=== PATIENT | female | born 1980 | race Caucasian/White ===

== ENCOUNTER → 2022-03-02 16:38 | Outpatient (BNVA) | payer OTHER, SELFPAY | PROVIDERS: Family Provider Nurse Practitioner Family; PCP Nurse Practitioner Family; Visit Provider Registered Nurse | DX: R51.9 Headache, unspecified (principal) | CPT/HCPCS: 80053; 85025; 85651; 86140 ==

== ENCOUNTER 2022-03-17 07:03 | Outpatient (CLI) | payer OTHER, SELFPAY ==
--- NOTE | 2022-03-17 07:15 | MR_ITS ---
WS: [id number] MRI HEAD WITH CONTRAST TECHNIQUE: Sagittal T1, T2 axial, T2 axial FLAIR, axial susceptibility weighted imaging, axial diffus ion weighted images, and coronal T2 images were obtained. Pre and post-T1 axial and post T1 coronal i mages. ADC and FSPGR images. CLINICAL INFORMATION: R51.9 - Headache, unspecified COMPARISON: None. FINDINGS: No evidence restricted diffusion to suggest acute ischemia. Ventricular system and basal cisterns are patent. Small focus of T2 signal abnormality in the RIGHT frontal white matter near the vertex. A fe w tiny foci in the periventricular white matter of doubtful clinical significance. No suspicious intr acranial signal abnormalities. Normal posterior fossa. Normal vascular flow voids at the skull base. No extra-axial fluid collections. No evidence of mass or mass effect. No hemosiderin on susceptibly weighted images. Normal optic chiasm and pituitary infundibulum. Tempor al lobes and hippocampal formations are normal in appearance. Visualized orbits and globes are normal in appearance. No abnormal gadolinium enhancement. Normal cavernous sinuses and Meckel's cave. No abnormal intracran ial enhancement. Normal dural venous sinuses. MR/MR head wo/w con [id number] IMPRESSION: 1. No evidence restricted diffusion to suggest acute ischemia. 2. A few small foci of T2 hyperintensity in the frontal subcortical and perive ntricular white matter of doubtful clinical significance. No significant parenc hymal volume loss. 3. No hemosiderin on susceptibly weighted images. 4. Normal optic chiasm and pituitary infundibulum. Normal cavernous sinuses an d Meckel's cave. 5. Paranasal sinuses and mastoid air cells well aerated. 6. Visualized orbits are normal in appearance.
[2022-03-17] MEDS: gadobenate dimeglumine 20 mL vial IV (08:10)
== END 2022-03-17 07:04 | disposition home or self-care (01) ==
LOC: RAD 07:04
PROVIDERS: Family Provider Nurse Practitioner Family; PCP Registered Nurse; Visit Provider Specialist
DX: R51.9 Headache, unspecified (principal)
CPT/HCPCS: 70553

== ENCOUNTER → 2023-06-14 08:59 | Outpatient (BNVA) | payer OTHER, SELFPAY | PROVIDERS: Family Provider Nurse Practitioner Family; PCP Registered Nurse; Referring Provider Registered Nurse; Visit Provider Nurse Practitioner Family | DX: G54.2 Cervical root disorders, not elsewhere classified | CPT/HCPCS: 73030 ==

== ENCOUNTER 2023-08-23 08:18 | Outpatient (CLI) | payer OTHER, SELFPAY ==
--- NOTE | 2023-08-23 08:25 | MM_ITS ---
WS: [id number] DIAGNOSTIC BILATERAL DIGITAL BREAST TOMOSYNTHESIS MAMMOGRAPHY WITH CAD RIGHT breast ultrasound, limited. HISTORY: RT BR LUMP COMPARISON: None available. TECHNIQUE: Bilateral craniocaudad, mediolateral oblique, and mediolateral views are submitted with to mosynthesis and SM. Spot compression RIGHT CC. Computer aided detection utilized. Breast composition: The breasts are heterogeneously dense, which may obscure small masses. Palpable m arker corresponds to the 12:00 axis of the RIGHT breast. There is very dense fibroglandular tissue. Q uestionable minimal distortion of the soft tissues. Benign calcifications within each breast. RIGHT breast ultrasound, limited. Numerous cysts in the RIGHT breast at 12:00, which correspond to the palpable abnormality and also th e increased density on the mammogram. The largest cyst measures 2.0 x 1.3 x 2.5 cm. No solid mass. IMPRESSION: MM/[place] [id number] BI-RADS: 2-Benign FOLLOW UP: 1 Year Follow-up
== END 2023-08-23 08:19 | disposition home or self-care (01) ==
PROVIDERS: Family Provider Nurse Practitioner Family; PCP Registered Nurse; Visit Provider Registered Nurse
DX: N63.15 Unspecified lump in the right breast, overlapping quadrants (principal)
CPT/HCPCS: 76642; 77062; G0279

== ENCOUNTER → 2024-03-06 09:07 | Outpatient (BNVA) | payer OTHER, SELFPAY | PROVIDERS: Family Provider Nurse Practitioner Family; PCP Registered Nurse; Visit Provider Registered Nurse | DX: F41.1 Generalized anxiety disorder (principal); F43.0 Acute stress reaction; Z13.6 Encounter for screening for cardiovascular disorders; Z00.00 Encounter for general adult medical examination without abnormal findings; Z01.419 Encounter for gynecological examination (general) (routine) without abnormal findings | CPT/HCPCS: 80053; 80061; 85025; 87070; 87205; 88175 ==

== ENCOUNTER → 2025-03-07 10:09 | Outpatient (BNVA) | payer OTHER, SELFPAY | PROVIDERS: PCP Registered Nurse; Visit Provider Registered Nurse | DX: E55.9 Vitamin D deficiency, unspecified (principal); G57.93 Unspecified mononeuropathy of bilateral lower limbs; I10 Essential (primary) hypertension | CPT/HCPCS: 80053; 82306; 85025; 86141 ==

== ENCOUNTER → 2025-04-11 15:26 | Outpatient (BNVA) | payer OTHER, SELFPAY | PROVIDERS: PCP Registered Nurse; Referring Provider Registered Nurse; Visit Provider Podiatrist Foot & Ankle Surgery | DX: G57.93 Unspecified mononeuropathy of bilateral lower limbs (principal); M72.2 Plantar fascial fibromatosis | CPT/HCPCS: 73630 ==